=== PATIENT | male | born 1960 | race African-American/Black ===

== ENCOUNTER 2020-02-18 10:34 | Emergency (ER) | payer SELFPAY ==
[~2020-02-18] VITALS: Ht 180.3 cm; Wt 101.0 kg
[2020-02-18] MEDS ORDERED: ACETAMINOPHEN WITH CODEINE 300/30MG TABLET PO ONE (11:15)
[2020-02-18 12:25] VITALS: BP 139/99
== END 2020-02-18 12:30 | disposition home or self-care (01) ==
LOC: ER 10:34
DX: S93.402A Sprain of unspecified ligament of left ankle, initial encounter (principal); Y93.02 Activity, running; Y92.89 Other specified places as the place of occurrence of the external cause
CPT/HCPCS: 73600; 99283; Z7610